=== PATIENT | male | born 1960 | race Two or more races ===

== ENCOUNTER 2017-09-24 18:52 | Emergency (ER) | payer BC ==
[~2017-09-24] VITALS: Ht 177.8 cm; Wt 93.6 kg
[2017-09-24] MEDS ORDERED: hydrALAZINE INJ 20 MG/ML VIAL IV ONE ×2 (20:30→22:00)
[2017-09-24] MEDS ORDERED: NS 1,000 ML IV ONE (20:30)
[2017-09-24] MEDS ORDERED: MECLIZINE 25 MG TABLET PO ONE (20:30)
[2017-09-24 20:40] LABS: BASO % 0.1 % (0.0-1.0); EOS # 0.1 10^3/uL (0.0-0.50); EOS % 1.3 % (0.0-3.0); IMMATURE GRANULOCYTE % 0.4 % (0-0); LYMPH % 26.4 % (24.0-44.0); MEAN CORPUSCULAR HEMOGLOBIN 35.4 pg (27.0-33.0); MEAN CORPUSCULAR HGB CONC 34.2 g/dl (32.0-36.5); MEAN CORPUSCULAR VOLUME 103.6 fl (80.0-96.0); MONO # 0.6 10^3/uL (0.0-0.8); MONO % 7.8 % (0.0-5.0); NEUTROPHILS # 4.9 10^3/uL (1.8-7.7); PLATELET COUNT, AUTOMATED 197 10^3/uL (150-450); RED CELL DISTRIBUTION WIDTH 12.8 % (11.5-14.5); WHITE BLOOD COUNT 7.6 10^3/uL (4.0-10.0)
[2017-09-24 20:49] LABS: ALBUMIN 3.9 GM/DL (3.2-5.2); ALBUMIN/GLOBULIN RATIO 1.26 (1.00-1.93); ALKALINE PHOSPHATASE 119 U/L (45-117); ALT/SGPT 38 U/L (12-78); ANION GAP 6 MEQ/L (8-16); AST/SGOT 39 U/L (7-37); BILIRUBIN,TOTAL 0.7 MG/DL (0.2-1.0); BLOOD UREA NITROGEN 13 MG/DL (7-18); CALCIUM LEVEL 9.2 MG/DL (8.5-10.1); CARBON DIOXIDE LEVEL 30 MEQ/L (21-32); CHLORIDE LEVEL 104 MEQ/L (98-107); CREATININE FOR GFR 0.93 MG/DL (0.70-1.30); GLOMERULAR FILTRATION RATE > 60.0 (>56); GLUCOSE, FASTING 137 MG/DL (70-105); POTASSIUM SERUM 4.8 MEQ/L (3.5-5.1); SODIUM LEVEL 140 MEQ/L (136-145)
[2017-09-24] MEDS: IPRATROPIUM 0.5MG/ALBUTEROL 2.5MG INH SOL UD 3ML (DUONEB)(J7620) NEB PRN ×2 (21:42→21:55)
[2017-09-24] MEDS ORDERED: LISINOPRIL 10 MG TAB PO ONE (22:00)
[2017-09-24] MEDS ORDERED: OXAZEPAM 10 MG CAP PO ONE (22:00)
[2017-09-24 23:45] VITALS: BP 177/77
[2017-09-24] MEDS ORDERED: amLODIPine 10 MG TAB PO ONE (23:45)
[2017-09-24] MEDS ORDERED: LISI10TA4 PO (23:57)
[2017-09-24] MEDS ORDERED: MECL-68 PO (23:57)
[2017-09-24] MEDS ORDERED: AMLO5TAB2 PO (23:57)
[2017-09-25 00:40] VITALS: BP 134/66
--- NOTE | 2017-09-25 08:58 | REP ---
Clinical: Cough. Dyspnea . Comparison: None . Findings: The mediastinum and cardiac silhouette are stable and within normal limits for portable technique. The lung ayers are clear without acute consolidation, effusion, or pneumothorax. Skeletal structures are intact. Impression: No acute cardiopulmonary process appreciated. Signed by Murray Rogers MD 09/25/2017 08:49 A
[2017-09-25] MEDS ORDERED: amLODIPine 10 MG TAB PO SCH (09:00)
--- NOTE | 2017-09-25 14:14 | ECGEPIP ---
Stationary ECG Study [facility] - ED Test Date: 2017-09-24 Pat Name: NAEL JACKSON Department: Room: - Gender: M [employer]: rn : 1960 Requested By: ANGELY Munoz Order Number: [id number] Reading MD: Marcie Ramos Measurements Intervals [place] Rate: 79 P: 42 TX: 154 QRS: 49 QRSD: 92 T: 47 QT: 372 QTc: 427 Interpretive Statements SINUS RHYTHM NO PRIOR FOR COMPARISON Electronically Signed On 09-25-2017 14:13:57 EST by Marcie Ramos
== END 2017-09-25 00:48 | disposition home or self-care (01) ==
LOC: M ED 18:52 → EDBD 18:52 → EDUNIT# 18:52 → M ED 09-25 00:48
DX: R42 Dizziness and giddiness (principal); R03.0 Elevated blood-pressure reading, without diagnosis of hypertension; F17.210 Nicotine dependence, cigarettes, uncomplicated

== ENCOUNTER → 2017-10-21 | Outpatient (REF) | payer BC ==
[~2017-10-21] MED LIST: AMLO5TAB2 PO; LISI10TA4 PO; MECL-68 PO
[2017-10-21 13:20] LABS: ANION GAP 6 MEQ/L (8-16); BLOOD UREA NITROGEN 7 MG/DL (7-18); CALCIUM LEVEL 8.9 MG/DL (8.5-10.1); CARBON DIOXIDE LEVEL 32 MEQ/L (21-32); CHLORIDE LEVEL 105 MEQ/L (98-107); CHOLESTEROL LEVEL 253 MG/DL (<200); CREATININE FOR GFR 0.92 MG/DL (0.70-1.30); GLOMERULAR FILTRATION RATE > 60.0 (>56); GLUCOSE, FASTING 101 MG/DL (70-105); POTASSIUM SERUM 4.3 MEQ/L (3.5-5.1); SODIUM LEVEL 143 MEQ/L (136-145); TRIGLYCERIDES LEVEL 560 MG/DL (<150)
== END ==
LOC: M SFHCADAM 07:50
PROVIDERS: ATTEND Physician Assistant Medical
DX: I10 Essential (primary) hypertension (principal); F17.210 Nicotine dependence, cigarettes, uncomplicated

== ENCOUNTER → 2018-02-11 | Outpatient (REF) | payer BC ==
[2018-02-11 13:09] LABS: CHOLESTEROL LEVEL 256 MG/DL (<200); CHOLESTEROL RISK RATIO 5.688 (<5); HDL CHOLESTEROL 45 MG/DL (>40); LDL CHOLESTEROL 140.2 MG/DL (<100); NON-HDL-C 211 MG/DL; TRIGLYCERIDES LEVEL 354 MG/DL (<150)
== END ==
LOC: M SFHCADAM 08:09
DX: E78.1 Pure hyperglyceridemia (principal)
CPT/HCPCS: 80061

== ENCOUNTER → 2020-02-10 | Outpatient (CLI) | payer SELFPAY ==
[~2020-02-10] MED LIST changes: -AMLO5TAB2 PO; +AMLO5TAB6 PO; -MECL-68 PO; +MECL1TAB31 PO
== END ==
LOC: M PLALAB 15:06
PROVIDERS: ATTEND Psychiatry & Neurology Addiction Medicine
DX: F10.99 Alcohol use, unspecified with unspecified alcohol-induced disorder (principal)

== ENCOUNTER → 2020-02-10 | Outpatient (CLI) | payer SELFPAY | LOC: M OUTALCOH 08:04 | PROVIDERS: ATTEND Psychiatry & Neurology Addiction Medicine | DX: F10.20 Alcohol dependence, uncomplicated (principal); F17.200 Nicotine dependence, unspecified, uncomplicated ==

== ENCOUNTER → 2020-03-10 | Outpatient (RCR) | payer MEDICAID, SELFPAY | LOC: M OUTALCOH 02-17 07:57 | PROVIDERS: ATTEND Psychiatry & Neurology Addiction Medicine | DX: F10.20 Alcohol dependence, uncomplicated (principal); F17.200 Nicotine dependence, unspecified, uncomplicated ==

== ENCOUNTER → 2020-03-18 | Outpatient (CLI) | payer MEDICAID ==
--- NOTE | 2020-03-19 08:05 | REP ---
LUMBOSACRAL SPINE: Five views of lumbosacral spine are performed. No compression fracture or malalinement is seen. There is normal lumbar lordosis. There is mild to moderate diffuse spurring, with large spurs on the left at L2 through L4. There is mild disc space narrowing and subchondral sclerosis at all levels. There is sclerosis and spurring at the posterior facet joints of L3-4 through L5-S1. Posterior elements are intact. There is mild sclerosis at the sacroiliac joints bilaterally. IMPRESSION: Arthritic changes, as above. No compression fracture. Electronically Signed by Jamal Devi MD 03/21/2020 12:05 P
== END ==
LOC: M ADAMS 14:55
PROVIDERS: ATTEND Physician Assistant Medical
DX: M51.36 Other intervertebral disc degeneration, lumbar region (principal); M51.37 Other intervertebral disc degeneration, lumbosacral region; M25.78 Osteophyte, vertebrae; M54.5 Low back pain

== ENCOUNTER → 2020-03-22 | Outpatient (POV) | payer MEDICAID ==
--- NOTE | 2020-03-23 08:46 | IRCOV ---
[facility] IR Consult Office Visit IR Consult Office Visit DATE: March 22, 2020 Telemedicine REASON FOR CONSULTATION/CHIEF COMPLAINT: Pins and needles HISTORY OF PRESENT ILLNESS: 59 non diabetic male, complains of pins and needles in bilateral lower extremities for past 3 months. States he feels like he is walking on needles and his calves feel numb. Reports walking around all the time and symptoms are not better or worse with walking. He feels sharp pains over the top of his foot. Symptoms are worse with bending forward where he describes shooting pains down the back of the legs and worsening pins and needles in his toes. He denies rest pain, gangrene or cold leg. He denies low back pain or prior back trauma, surgery or procedures. He denies chest pain, shortness of breath, orthopnea or PND. ALLERGIES: Please see below. HOME MEDICATIONS: Please see below. PAST MEDICAL HISTORY: HTN HL Vertigo ETOH abuse PAST SURGICAL HISTORY: left ankle surgery 1977 FAMILY HISTORY: non contributory SOCIAL HISTORY: smoker. Denies alcohol or drug use. REVIEW OF SYSTEMS: Otherwise negative PHYSICAL EXAMINATION: no video LABORATORY DATA: none recent Imaging: I personally reviewed the l spine radiographs from march 2020. Minimal posterior disc osteophyte complexes and lower lumbar facet hypertrophy. ASSESSMENT/PLAN: 59 non diabetic male presents with pins and needles and shooting pains down the legs. I think it's best to obtain an MRI of the L spine to assess for nerve impingement or foraminal stenosis. I will obtain a non invasive CTA with bilateral lower extremities given question of intermittent claudication. Advise smoking cessation, daily baby aspirin and supervised exercise program. I spent 30 minutes in consultation with the patient. Thank you for this referral. cc carly Goyal Allergies Coded Allergies: No Known Allergies (Unverified , 09/24/17) Home Medications Scheduled Amlodipine Besylate (Amlodipine Besylate), 5 MG PO DAILY Lisinopril (Lisinopril), 10 MG PO DAILY Scheduled PRN Meclizine HCl (Meclizine HCl), 25 MG PO Q8HP PRN for VERTIGO/DIZZINESS TREY PLATA MD March 23, 2020 08:46
== END ==
LOC: M TMIRPOV 07:51
PROVIDERS: ATTEND Radiology Diagnostic Radiology
DX: R20.2 Paresthesia of skin (principal); F17.210 Nicotine dependence, cigarettes, uncomplicated; Z79.899 Other long term (current) drug therapy

== ENCOUNTER → 2020-04-01 | Outpatient (REF) | payer MEDICAID ==
[2020-04-01 12:56] LABS: BASO % 0.3 % (0.0-1.0); EOS # 0.2 10^3/uL (0.0-0.5); HEMATOCRIT 44.1 % (42.0-52.0); LYMPH # 3.2 10^3/uL (1.5-5.0); LYMPH % 43.8 % (24.0-44.0); MEAN CORPUSCULAR HEMOGLOBIN 37.5 pg (27.0-33.0); MEAN CORPUSCULAR VOLUME 110.3 fl (80.0-96.0); MONO # 0.6 10^3/uL (0.0-0.8); MONO % 7.5 % (0.0-5.0); NEUTROPHILS # 3.4 10^3/uL (1.5-8.5); PLATELET COUNT, AUTOMATED 321 10^3/uL (150-450); WHITE BLOOD COUNT 7.4 10^3/uL (4.0-10.0)
[2020-04-01 12:58] LABS: BLOOD UREA NITROGEN 8 MG/DL (7-18); CALCIUM LEVEL 8.8 MG/DL (8.5-10.1); CARBON DIOXIDE LEVEL 27 MEQ/L (21-32); CHLORIDE LEVEL 106 MEQ/L (98-107); CREATININE FOR GFR 0.86 MG/DL (0.70-1.30); GLOMERULAR FILTRATION RATE > 60.0 (>56); GLUCOSE, FASTING 99 MG/DL (70-100); POTASSIUM SERUM 4.8 MEQ/L (3.5-5.1); SODIUM LEVEL 140 MEQ/L (136-145)
[2020-04-01 12:59] LABS: ALBUMIN 3.3 GM/DL (3.2-5.2); ALT/SGPT 31 U/L (12-78); BILIRUBIN,TOTAL 0.3 MG/DL (0.2-1.0); CHOLESTEROL LEVEL 238 MG/DL (<200); HDL CHOLESTEROL 40 MG/DL (>40); LDL CHOLESTEROL 148 MG/DL (<100); NON-HDL-C 198 MG/DL; TOTAL PROTEIN 6.3 GM/DL (6.4-8.2); TRIGLYCERIDES LEVEL 251 MG/DL (<150)
== END ==
LOC: M SFHCADAM 09:48
PROVIDERS: ATTEND Physician Assistant Medical
DX: I10 Essential (primary) hypertension (principal); F17.210 Nicotine dependence, cigarettes, uncomplicated; E78.1 Pure hyperglyceridemia

== ENCOUNTER 2020-04-07 10:00 | Outpatient (RCR) | payer MEDICAID, SELFPAY | END 2020-04-10 | LOC: M OUTALCOH 10:00 | PROVIDERS: ATTEND Psychiatry & Neurology Addiction Medicine | DX: F10.20 Alcohol dependence, uncomplicated (principal); F17.200 Nicotine dependence, unspecified, uncomplicated ==

== ENCOUNTER → 2020-04-15 | Outpatient (REF) | payer MEDICAID, OTHER ==
[2020-04-15 18:11] LABS: FOLATE 1.8 NG/ML; PERCENT SATURATION 31.5 % (19.7-50.0)
== END ==
LOC: M SFHCADAM 11:53
PROVIDERS: ATTEND Physician Assistant Medical
DX: D75.89 Other specified diseases of blood and blood-forming organs (principal)

== ENCOUNTER → 2020-04-19 | Outpatient (CLI) | payer OTHER | LOC: M LAB 17:17 | PROVIDERS: ATTEND Psychiatry & Neurology Addiction Medicine | DX: F10.20 Alcohol dependence, uncomplicated (principal) ==

== ENCOUNTER → 2020-04-25 | Outpatient (CLI) | payer OTHER, MEDICAID ==
--- NOTE | 2020-04-25 10:09 | REP ---
Clinical: Symptoms related to atherosclerotic disease and intermittent claudication. Technique: Real time devi scale and color Doppler evaluation of the bilateral lower extremity arterial vasculature using linear high frequency transducer. Findings: Devi scale and color images demonstrate no significant atheromatous plaquing or areas of stenosis/occlusion. Doppler interrogation demonstrates normal triphasic arterial wave forms and velocities bilaterally. Peak systolic velocities (cm/sec) RIGHT LEFT ELEN 0.9 -- Common femoral artery 155.2 120.6 Profunda femoris 101.5 96.1 SFA (proximal) 164.1 159.6 SFA (mid) 111.5 119.4 SFA (distal) 114.8 128.6 Popliteal artery 69.4 79.6 MELISSA (prox.) 70.5 54.3 Tibioperoneal trunk 101.9 119.0 FULLERETTE (prox.) 69.3 70.6 FULLERETTE (distal) 104.1 79.2 MELISSA (distal) 61.3 76.5 Impression: Age-appropriate examination without areas of stenosis or occlusion. Electronically Signed by Murray Rogers MD 04/25/2020 10:01 A
--- NOTE | 2020-04-25 13:14 | REPVR ---
PROCEDURE INFORMATION: Exam: MR Lumbar Spine Without Contrast. Exam date and time: 04/25/2020 8:18 AM Age: 59 years old Clinical indication: Pain; Sciatica; Bilateral TECHNIQUE: Imaging protocol: Multiplanar magnetic resonance images of the lumbar spine without intravenous contrast. COMPARISON: DX SPINE LS COMPLETE 03/18/2020 2:44 PM FINDINGS: Vertebrae: See "L4-L5" finding. Spinal cord: See "L3-L4" finding. L1-L2: No significant disc disease. No significant spinal canal stenosis. No neural foraminal stenosis. L2-L3: No significant disc disease. No significant spinal canal stenosis. No neural foraminal stenosis. L3-L4: There is bilateral lateral herniation at L3-L4 with mild T2 bright streak indicating focal annular fissure beyond the foramen at the disc margin on image 601:12. There is mild facet arthropathy. There is no nerve root compression. L4-L5: There is a 2 mm thick by 12 mm broad subarticular herniation at L4-L5. There is mild cephalad subligamentous extrusion of disc material extending 7 mm above the inferior endplate of L4 on sagittal image 8. There is mild posterior displacement of the right anterior thecal sac on axial images 9 and 8 but no nerve compression despite moderate facet arthropathy. L5-S1: The L5-S1 level demonstrates a mild diffuse posterior disc herniation. There is Modic type 2 signal change at the left disc margin. There is mild facet arthropathy. There is no nerve root compression. Soft tissues: Unremarkable. IMPRESSION: 1. There is bilateral lateral herniation at L3-L4 with mild T2 bright streak indicating focal annular fissure beyond the foramen at the disc margin on image 601:12. There is mild facet arthropathy. There is no nerve root compression. 2. There is a 2 mm thick by 12 mm broad subarticular herniation at L4-L5. There is mild cephalad subligamentous extrusion of disc material extending 7 mm above the inferior endplate of L4 on sagittal image 8. There is mild posterior displacement of the right anterior thecal sac on axial images 9 and 8 but no nerve compression despite moderate facet arthropathy. 3. The L5-S1 level demonstrates a mild diffuse posterior disc herniation. There is Modic type 2 signal change at the left disc margin. There is mild facet arthropathy. There is no nerve root compression. Electronically signed by: Bunny Muñoz On 04/25/2020 13:14:36 PM
== END ==
LOC: M RAD 07:19
PROVIDERS: ATTEND Radiology Diagnostic Radiology
DX: I73.9 Peripheral vascular disease, unspecified (principal); M51.36 Other intervertebral disc degeneration, lumbar region

== ENCOUNTER → 2020-05-02 | Outpatient (CLI) | payer SELFPAY | LOC: M PLALAB 15:42 | PROVIDERS: ATTEND Psychiatry & Neurology Addiction Medicine | DX: F10.99 Alcohol use, unspecified with unspecified alcohol-induced disorder (principal) ==

== ENCOUNTER 2020-05-04 13:13 | Outpatient (RCR) | payer SELFPAY | END 2020-05-10 | LOC: M OUTALCOH 13:13 | PROVIDERS: ATTEND Psychiatry & Neurology Addiction Medicine | DX: F10.20 Alcohol dependence, uncomplicated (principal); F17.200 Nicotine dependence, unspecified, uncomplicated ==

== ENCOUNTER → 2020-05-10 | Outpatient (POV) | payer OTHER ==
--- NOTE | 2020-05-12 07:59 | IRPN ---
[facility] IR Progress Note IR Progress Note DATE: May 10, 2020 Patient agreed to this telephone consultation. Duration of call was 15 minutes. FOLLOW-UP: Patient with bilateral lower extremity pain and pins and needles. Imaging: Bilateral lower extremity arterial ultrasound was performed on 04/25/2020. I personally reviewed the bilateral lower extremity arterial ultrasound. There is no significant arterial stenosis. Good waveform throughout the bilateral lower extremities. MRI lumbar spine was performed on 04/25/2020. I Personally reviewed the MRI L spine. No significant canal stenosis. No compression deformities. Posterior disc osteophyte complex at L4-L5. IMPRESSION: 59-year-old male with bilateral lower extremity pain and pins and needles. This may be related to disc/facet disease in the lower lumbar spine. We will refer the patient to pain clinic for further evaluation and consideration for pain injections if appropriate. Thank you for this referral Cc Navya Brunner Allergies Coded Allergies: No Known Allergies (Unverified , 09/24/17) TREY PLATA MD May 12, 2020 07:59
== END ==
LOC: M TMIRPOV 07:55
PROVIDERS: ATTEND Radiology Diagnostic Radiology
DX: M79.604 Pain in right leg (principal); M79.605 Pain in left leg; R20.2 Paresthesia of skin

== ENCOUNTER 2020-06-08 15:00 | Outpatient (RCR) | payer OTHER, SELFPAY ==
[~2020-06-08 15:00] MED LIST changes: +AMLO1TAB24 PO; -AMLO5TAB6 PO
== END 2020-06-10 ==
LOC: M OUTALCOH 15:00
PROVIDERS: ATTEND Psychiatry & Neurology Addiction Medicine
DX: F10.20 Alcohol dependence, uncomplicated (principal); F17.200 Nicotine dependence, unspecified, uncomplicated

== ENCOUNTER → 2020-07-11 | Outpatient (RCR) | payer OTHER, SELFPAY | LOC: M OUTALCOH 06-27 08:00 | PROVIDERS: ATTEND Psychiatry & Neurology Addiction Medicine | DX: F10.20 Alcohol dependence, uncomplicated (principal); F17.200 Nicotine dependence, unspecified, uncomplicated ==

== ENCOUNTER 2020-07-20 10:17 | Outpatient (RCR) | payer SELFPAY | END 2020-08-10 | disposition still patient (30) | LOC: M OUTALCOH 10:17 | PROVIDERS: ATTEND Psychiatry & Neurology Addiction Medicine | DX: F10.20 Alcohol dependence, uncomplicated (principal); F17.200 Nicotine dependence, unspecified, uncomplicated ==

== ENCOUNTER → 2021-07-12 | Outpatient (REF) ==
[~2021-07-12] MED LIST changes: +LISI10TA22 PO; -LISI10TA4 PO
--- NOTE | 2021-07-13 05:42 | REP ---
INDICATION: ARTHRITIS COMPARISON: None. TECHNIQUE: AP, lateral, bilateral oblique and sunrise views. FINDINGS: Early advanced tricompartmental osteoarthritic degenerative changes includes periarticular sclerosis, joint space narrowing, chondrocalcinosis, and osteophytosis. There is no evidence for acute fracture or dislocation. No joint effusion is appreciated. Surrounding soft tissues are unremarkable. No subcutaneous emphysema or radiodense foreign body. IMPRESSION: Early advanced tricompartmental osteoarthritic changes. No acute fracture or dislocation. <Electronically signed by Murray Rogers > 07/13/21 [id number]
--- NOTE | 2021-07-13 05:47 | REP ---
INDICATION: ARTHRITIS. COMPARISON: None TECHNIQUE: AP, swimmer's, open mouth and lateral view of the cervical spine FINDINGS: Early advanced multilevel degenerative changes include endplate sclerosis, osteophytosis, disc space narrowing primarily involving C4 through C7. Alignment is maintained. No acute fracture/compression injury or subluxation. Open mouth view demonstrates normal C1-C2 articulation and odontoid process. IMPRESSION: Early advanced multilevel degenerative spondylosis. <Electronically signed by Murray Rogers > 07/13/21 0555
== END ==
LOC: M PLAIMG 11:30
PROVIDERS: ATTEND Internal Medicine
DX: M17.12 Unilateral primary osteoarthritis, left knee (principal); M47.812 Spondylosis without myelopathy or radiculopathy, cervical region

== ENCOUNTER → 2022-03-08 | Outpatient (CLI) | payer OTHER | LOC: M CARPUL 08:46 | PROVIDERS: ATTEND Physician Assistant Medical | DX: I10 Essential (primary) hypertension (principal) ==

== ENCOUNTER → 2022-05-21 | Outpatient (CLI) | payer OTHER | LOC: M WHC 08:58 | PROVIDERS: ATTEND Physician Assistant Medical | DX: K76.0 Fatty (change of) liver, not elsewhere classified (principal) ==

== ENCOUNTER → 2022-08-14 | Outpatient (REF) | payer OTHER, MEDICAID | LOC: M SFHCADAM 15:09 | PROVIDERS: ATTEND Physician Assistant Medical | DX: U07.1 COVID-19 (principal); Z53.9 Procedure and treatment not carried out, unspecified reason ==

== ENCOUNTER → 2023-01-14 | Outpatient (CLI) | payer MEDICAID, OTHER | LOC: M RAD 12:23 | PROVIDERS: ATTEND Physician Assistant | DX: M79.671 Pain in right foot (principal); R59.0 Localized enlarged lymph nodes; R60.0 Localized edema ==

== ENCOUNTER → 2024-08-11 | Outpatient (CLI) | payer MEDICARE ==
[~2024-08-11] MED LIST changes: +MECL-209 PO; -MECL1TAB31 PO
[2024-08-11 11:20] LABS: BASO % 0.3 % (0.0-1.0); EOS # 0.1 10^3/uL (0.0-0.5); EOS % 1.2 % (0.0-3.0); HEMATOCRIT 46.8 % (42.0-52.0); HEMOGLOBIN 15.4 g/dl (13.5-17.5); LYMPH # 4.1 10^3/uL (1.5-5.0); LYMPH % 37.2 % (24.0-44.0); MEAN CORPUSCULAR HEMOGLOBIN 30.7 pg (27.0-33.0); MEAN CORPUSCULAR HGB CONC 32.9 g/dl (32.0-36.5); MEAN CORPUSCULAR VOLUME 93.2 fl (80.0-96.0); MONO # 0.8 10^3/uL (0.0-0.8); MONO % 7.1 % (2.0-8.0); NEUTROPHILS # 5.9 10^3/uL (1.5-8.5); NEUTROPHILS % 53.9 % (36.0-66.0); PLATELET COUNT, AUTOMATED 261 10^3/uL (150-450); RED BLOOD COUNT 5.02 10^6/uL (4.30-6.10); WHITE BLOOD COUNT 10.9 10^3/uL (4.0-10.0)
[2024-08-11 11:55] LABS: ALKALINE PHOSPHATASE 98 U/L (46-116); ALT/SGPT 25 U/L (7.0-40); AST/SGOT 16 U/L (<34); BILIRUBIN,TOTAL 0.3 MG/DL (0.3-1.2); BLOOD UREA NITROGEN 21 MG/DL (9-23); CALCIUM LEVEL 9.8 MG/DL (8.3-10.6); CARBON DIOXIDE LEVEL 28 MMOL/L (20-31); CHLORIDE LEVEL 107 MMOL/L (98-107); CHOLESTEROL LEVEL 120 MG/DL (<200); CHOLESTEROL RISK RATIO 3.51 (<5); CREATININE FOR GFR 1.09 MG/DL (0.70-1.30); GLOMERULAR FILTRATION RATE > 60.0 (>49); GLUCOSE, FASTING 100 MG/DL (74-106); HDL CHOLESTEROL 34.1 MG/DL (>40); LDL CHOLESTEROL 52.3 MG/DL (<100); NON-HDL-C 85.9 MG/DL; POTASSIUM SERUM 4.4 MMOL/L (3.5-5.1); SODIUM LEVEL 139 MMOL/L (136-145); THYROID PEROXIDASE ANTIBODY 237 U/ML (<60.0); THYROID STIMULATING HORMONE 4.603 uIU/ML (0.55-4.78); TOTAL 25(OH) VITAMIN D 32.8 NG/ML (20.0-100.0); TRIGLYCERIDES LEVEL 168 MG/DL (<150)
[2024-08-11 13:18] LABS: HEMOGLOBIN A1c 5.8 % (4.0-6.0)
== END ==
LOC: M LAB 10:17
PROVIDERS: ATTEND Nurse Practitioner Adult Health
DX: I10 Essential (primary) hypertension (principal); F10.21 Alcohol dependence, in remission; R53.83 Other fatigue; E78.5 Hyperlipidemia, unspecified; R94.6 Abnormal results of thyroid function studies; E55.9 Vitamin D deficiency, unspecified; E03.9 Hypothyroidism, unspecified; Z79.899 Other long term (current) drug therapy

== ENCOUNTER → 2024-11-02 | Outpatient (CLI) | payer MEDICARE ==
[2024-11-02 11:04] LABS: BASO # 0.1 10^3/uL (0.0-0.2); BASO % 0.4 % (0.0-1.0); EOS # 0.1 10^3/uL (0.0-0.5); HEMATOCRIT 49.1 % (42.0-52.0); HEMOGLOBIN 16.3 g/dl (13.5-17.5); LYMPH # 4.8 10^3/uL (1.5-5.0); LYMPH % 40.3 % (24.0-44.0); MEAN CORPUSCULAR HGB CONC 33.2 g/dl (32.0-36.5); MEAN CORPUSCULAR VOLUME 93.3 fl (80.0-96.0); MONO # 0.7 10^3/uL (0.0-0.8); MONO % 5.7 % (2.0-8.0); NEUTROPHILS # 6.2 10^3/uL (1.5-8.5); NEUTROPHILS % 52.4 % (36.0-66.0); PLATELET COUNT, AUTOMATED 303 10^3/uL (150-450); RED BLOOD COUNT 5.26 10^6/uL (4.30-6.10); WHITE BLOOD COUNT 11.8 10^3/uL (4.0-10.0)
[2024-11-02 11:21] LABS: HEMOGLOBIN A1c 5.8 % (4.0-6.0)
[2024-11-02 11:32] LABS: FREE T4 1.12 NG/DL (0.89-1.76)
[2024-11-02 11:33] LABS: ALBUMIN 3.9 G/DL (3.2-5.2); ALKALINE PHOSPHATASE 80 U/L (40-129); ALT/SGPT 22 U/L (7.0-40); AST/SGOT 17 U/L (<34); BILIRUBIN,TOTAL 0.5 MG/DL (0.3-1.2); BLOOD UREA NITROGEN 14 MG/DL (9-23); CALCIUM LEVEL 10.1 MG/DL (8.3-10.6); CARBON DIOXIDE LEVEL 30 MMOL/L (20-31); CHLORIDE LEVEL 104 MMOL/L (98-107); CHOLESTEROL LEVEL 123 MG/DL (<200); CHOLESTEROL RISK RATIO 3.77 (<5); CREATININE FOR GFR 1.04 MG/DL (0.70-1.30); GLOMERULAR FILTRATION RATE > 60.0 (>49); GLUCOSE, FASTING 98 MG/DL (74-106); HDL CHOLESTEROL 32.6 MG/DL (>40); LDL CHOLESTEROL 48.4 MG/DL (<100); NON-HDL-C 90.4 MG/DL; POTASSIUM SERUM 4.3 MMOL/L (3.5-5.1); SODIUM LEVEL 141 MMOL/L (136-145); TOTAL PROTEIN 6.9 G/DL (5.7-8.2); TRIGLYCERIDES LEVEL 210 MG/DL (<150)
[2024-11-02 11:36] LABS: THYROGLOBULIN ANTIBODY < 15.0 U/ML (<60.0); THYROID PEROXIDASE ANTIBODY 233 U/ML (<60.0)
== END ==
LOC: M LAB 09:53
PROVIDERS: ATTEND Nurse Practitioner Adult Health
DX: E78.5 Hyperlipidemia, unspecified (principal); Z79.899 Other long term (current) drug therapy